=== PATIENT | female | born 1980 | race American Indian/Alaskan Native ===

== ENCOUNTER 2019-12-06 06:00 | Day surgery (SDC) | payer BC ==
[~2019-12-06 06:00] MED LIST: CELECOXIB 200 MG CAP PO NR; GABAPENTIN 300 MG CAP PO NR; LACTATED RINGERS 1,000 ML IV SCH; MIDAZOLAM 2 MG/2 ML INJ IV NR
[2019-12-06] MEDS ORDERED: BUPIVACAINE/PF (0.5%) 5 MG/1 ML 10 ML VIAL INFILTRATI ONE ×2 (07:08→08:06)
[2019-12-06] MEDS ORDERED: ONDANSETRON 4 MG/2 ML INJ IV PRN (07:10)
[2019-12-06] MEDS ORDERED: HYDROmorphone 1 MG/1 ML INJ IV PRN (07:10)
--- NOTE | 2019-12-06 07:10 | Anesthesia Day of Surgery ---
Anesthesia Day of Surgery - Day of Surgery Patient Examined: Yes Patient H&P Reviewed: Yes Patient is NPO: Yes
--- NOTE | 2019-12-06 07:14 | Anesthesia Consultation ---
Anesthesia Consult and Med Hx Date of service: 12/06/19 - Airway Anesthetic Teeth Evaluation: Poor (Loose tooth left lower) ROM Head & Neck: Adequate Mental/Hyoid Distance: Adequate Mallampati Class: Class II Intubation Access Assessment: Good - Pre-Operative Health Status ASA Pre-Surgery Classification: ASA1 Proposed Anesthetic Plan: General - Central Nervous System Hx Psychiatric Problems: No - Other Systems Hx Alcohol Use: Yes (Occas) Hx Cancer: No
--- NOTE | 2019-12-06 07:27 | Short Stay Summary ---
Short Stay Documentation Date of service: 12/06/19 Narrative H&P: Pt is a 39yo BF LMP ? years ago due to Depoprovera, presents for permanent sterilization - History Principal diagnosis: Desires permanent sterilization H&P: obtained from office Past Medical History: No medical history Past Surgical History: Social history: no significant social history, single - Allergies and Medications Current Medications: Allergies pineapple Allergy (Verified 11/30/19 16:22) Swelling Home Medications Medication Instructions Recorded Confirmed Last Taken Type No Known Home Medications [No 11/30/19 11/30/19 Unknown History Reported Home Medications] Active Medications Celecoxib (Celebrex) 200 mg PO PREOP NR Stop: 12/06/19 18:00 Gabapentin (Gabapentin) 300 mg PO PREOP NR Stop: 12/06/19 16:00 Hydromorphone HCl (Dilaudid) 0.5 mg IV Q10MIN PRN PRN Reason: Pain , Severe (7-10) Stop: 12/06/19 23:00 Lactated Ringer's (Lactated Ringers) 1,000 mls @ 100 mls/hr IV DIRECT NAKIA Midazolam HCl (Versed) 2 mg IV PREOP NR Stop: 12/06/19 22:00 Ondansetron HCl (Zofran) 4 mg IV ONCE PRN PRN Reason: Nausea And Vomiting Stop: 12/06/19 13:00 - Physical exam General appearance: no acute distress Integumentary: no rash HEENT: Atraumatic Lungs: Clear to auscultation Breasts: deferred Heart: Regular rate Gastrointestinal: normal Female Genitourinary: deferred Rectal Exam: deferred Extremities: no ischemia, No edema Neurological: Normal gait, Normal speech - Brief post op/procedure progress note Date of procedure: 12/06/19 Pre-op diagnosis: Desires permanent sterilization Post-op diagnosis: same Procedure: Laparoscopic Bilateral Tubal Ligation Anesthesia: GETA Findings: Normal uterus with normal tubes and ovaries bilaterally Surgeon: ADRIENNE CORONEL Estimated blood loss: minimal Pathology: none Condition: stable - Hospital course Hospital course: Unremarkable. - Disposition Condition at discharge: Good Disposition: DC-01 TO HOME OR SELFCARE - Discharge Diagnoses (1) Encounter for sterilization Status: Resolved Short Stay Discharge Plan Activity: no restrictions Diet: regular Wound: open to air, keep clean and dry Follow up with: ADRIENNE CORONEL MD [Staff Physician] - 14 Days CONTO[place]OOK SHANIKA GUZMAN MD [Primary Care Provider] - 14 Days Prescriptions: HYDROcodone/APAP 5-325 [Woodruff 5/325] 1 each PO Q6HR PRN #20 tablet PRN Reason: Pain HYDROcodone/APAP 5-325 [Woodruff 5/325] 1 each PO Q6HR PRN #20 tablet PRN Reason: Pain
[2019-12-06 07:38] LABS: Hematocrit 39.1 % (30.3-42.9); Hemoglobin 13.2 gm/dl (10.1-14.3)
[2019-12-06] MEDS ORDERED: LIDOCAINE MPF (2%) 20 MG/1 ML VIAL 5 ML ONE (07:40)
[2019-12-06] MEDS ORDERED: SUCCINYLCHOLINE CHLORIDE 200 MG/10 ML INJ MDV ONE (07:40)
[2019-12-06] MEDS ORDERED: dexAMETHasone 20 MG/5 ML VIAL ONE (07:40)
[2019-12-06] MEDS ORDERED: ROCURONIUM 50 MG/5 ML INJ IV ONE (07:40)
[2019-12-06] MEDS ORDERED: ONDANSETRON 4 MG/2 ML INJ ONE (07:40)
[2019-12-06] MEDS ORDERED: GLYCOPYRROLATE 0.4 MG/2 ML INJ ONE (07:40)
[2019-12-06] MEDS ORDERED: NEOSTIGMINE 10MG/10 ML INJ MDV ONE (07:40)
[2019-12-06] MEDS ORDERED: fentaNYL 100 MCG/2 ML INJ ONE ×2 (07:41→07:56)
[2019-12-06] MEDS ORDERED: PROPOFOL 200 MG/20 ML VIAL IV ONE (07:41)
[2019-12-06] MEDS ORDERED: ceFAZolin/Water 2 GM/20 ML 2 GM/20 ML SYRINGE IV NR (08:00)
[2019-12-06] MEDS ORDERED: SODIUM CHLORIDE 0.9% IRR 1,500 ML BOTTLE IR ONE (08:06)
[2019-12-06] MEDS ORDERED: SUGAMMADEX SODIUM 200 MG/2 ML VIAL IV ONE (08:18)
--- NOTE | 2019-12-06 08:24 | Operative Report ---
Operative Report Operative Report: PREOPERATIVE DIAGNOSIS: Desires permanent sterilization POSTOPERATIVE DIAGNOSIS: Same OPERATIVE PROCEDURE: Laparoscopic bilateral tubal ligation. SURGEON: Chris Lovelace MD ANESTHESIA: Gen. endotracheal intubation ANESTHESIOLOGIST: Dr. Vivar ESTIMATED BLOOD LOSS: Minimal FINDINGS: A normal uterus with normal fallopian tubes and ovaries bilaterally. COMPLICATIONS: None COUNTS: Correct x3. PROCEDURE: After the patient was correctly identified and after general anesthesia was administered, the patient was prepped and draped in usual sterile fashion and placed in dorsal lithotomy position. First, the bladder was emptied using a straight catheter. Next, a speculum was placed in the vaginal vault and the anterior lip of the cervix was grasped using a single-tooth tenaculum. The uterine manipulator was then placed and the tenaculum and speculum were removed. Attention was then turned to the abdomen where first a periumbilical incision was made using a skin knife, and the Optiview trocar was inserted under direct visualization. After an adequate amount of abdominal insufflation, vi sualization of the pelvic organs found the uterus to be normal with normal fallopian tubes and ovaries bilaterally. Next, the left fallopian tube was grasped using the Kleppingers, and after identifying the fimbriated end of the left tube, this tube was cauterized in 3 continuous [address] along the proximal portion of the left tube. The same procedure was performed on the right fallopian tube after first identifying the fimbriated end of the right tube, this tube was also cauterized in 3 continuous places along the proximal portion of the right tube. At this point, the procedure was then considered complete. All instruments were removed from the abdomen. The abdomen was deflated and the periumbilical incision was closed using 0 Vicryl suture in a [id number] configuration on the fascia, followed by 4-0 Monocryl suture in sub-cuticular fashion on the skin. The incision was also infiltrated using 0.5% Marcaine solution. The uterine manipulator was removed. The patient tolerated the procedure well and was transferred to recovery room stable condition.
[2019-12-06 09:25] VITALS: BP 138/89
--- NOTE | 2019-12-06 10:01 | Post Anesthesia Evaluation ---
- Post Anesthesia Evaluation Patient Participated: Yes Airway Patent: Yes Stable Respiratory Function: Yes Nausea/Vomiting: No Temp > 96.8F: Yes Pain Manageable: Yes Adequeate Hydration: Yes Anesthesia Complications: No
== END 2019-12-06 06:01 | disposition home or self-care (01) ==
LOC: OR 06:00
PROVIDERS: ATTEND Obstetrics & Gynecology
DX: Z30.2 Encounter for sterilization (principal); Z72.89 Other problems related to lifestyle; Z91.018 Allergy to other foods; Z79.899 Other long term (current) drug therapy; Z98.890 Other specified postprocedural states
CPT/HCPCS: 36415; 58670; 81025; 82962; 85014; 85018; J0330; J0690; J1100; J2405; J2704; J2710; J3010; J7120